=== PATIENT | female | born 1985 | race Caucasian/White ===

== ENCOUNTER 2019-08-10 20:27 | Emergency (ER) | payer SELFPAY ==
[~2019-08-10] VITALS: Ht 157.5 cm; Wt 54.0 kg
[2019-08-10 20:35] VITALS: BP 118/73
--- NOTE | 2019-08-10 20:35 | NUR ---
TO BED # 06 AMBULATORY
[2019-08-10] MEDS ORDERED: ACETAMINOPHEN 325 MG TAB PO ONE (20:45)
--- NOTE | 2019-08-10 20:59 | NUR ---
34 Y/O FEMALE PRESENTS TO ED, C/O OF LEFT FLANK PAIN. PT STATES PAIN STARTED 3 DAYS AGO, 8/10 PAIN, DOES NOT RADIATE. PT DENIES ANY N/V/D. BS ACTIVE X4 QUADRANTS. C/O OF FEVER, 101 TEMP DURING TRIAGE ASSESSMENT. TOOK ADVIL THIS MORNING. PT VSS. ERMD AWARE. WILL CONTINUE TO MONITOR.
--- NOTE | 2019-08-10 21:02 | NUR ---
Dr. Mac examining patient.
[2019-08-10] MEDS ORDERED: KETOROLAC 15 MG/ML VIAL IVP ONE (21:05)
--- NOTE | 2019-08-10 21:16 | NUR ---
PT TAKEN TO CT
--- NOTE | 2019-08-10 21:23 | NUR ---
PT RETURN FROM CT
[2019-08-10] MEDS ORDERED: AZITHROMYCIN 250 MG TAB PO ONE (21:25)
[2019-08-10] MEDS ORDERED: cefTRIAXone 1,000 MG VIAL ONE (21:39)
[2019-08-10 21:43] LABS: BASOPHILS % (AUTO) 0.2 % (0.0-2.0); HEMATOCRIT 40.5 % (36-48); HEMOGLOBIN 13.7 g/dL (12.0-16.0); LYMPHOCYTES # (AUTO) 0.8 K/uL (2.5-16.5); LYMPHOCYTES % (AUTO) 5.1 % (20.5-51.1); MEAN CORPUSCULAR HEMOGLOBIN 31 pg (27-31); MEAN CORPUSCULAR HGB CONC 34 g/dL (33-37); MEAN CORPUSCULAR VOLUME 92.2 fL (80-94); MONOCYTES # (AUTO) 1.1 K/uL (0.8-1.0); MONOCYTES % (AUTO) 6.8 % (1.7-9.3); NEUTROPHILS # (AUTO) 14.1 K/uL (1.8-7.7); NEUTROPHILS % (AUTO) 87.9 % (42.2-75.2); PLATELET COUNT (AUTO) 363 K/uL (140-450); RED BLOOD CELL COUNT(AUTO) 4.39 MIL/uL (4.20-5.40); RED CELL DISTRIBUTION WIDTH 12.2 % (11.6-13.7)
--- NOTE | 2019-08-10 21:45 | NUR ---
PT TAKEN TO XRAY
[2019-08-10 21:57] LABS: ANION GAP 14.5 (8-16); CARBON DIOXIDE 27.8 mmol/L (21-32); CREATININE 0.7 mg/dL (0.6-1.3); POTASSIUM 4.3 mmol/L (3.5-5.1)
[2019-08-10 22:00] LABS: ALBUMIN 3.6 g/dL (3.4-5.0); TOTAL BILIRUBIN 0.9 mg/dL (0.0-1.0)
[2019-08-10 22:15] LABS: APPEARANCE,URINE CLEAR (CLEAR); BILIRUBIN,URINE NEGATIVE (NEGATIVE); BLOOD, URINE NEGATIVE (NEGATIVE); COLOR,URINE YELLOW (YELLOW); LEUKOCYTE ESTERASE ,URINE NEGATIVE (NEGATIVE); NITRITE, URINE NEGATIVE (NEGATIVE); UGLUCOSE NEGATIVE (NEGATIVE)
[2019-08-10 22:27] LABS: RBC,URINE 0-5 /HPF (0-5); WBC,URINE 0-5 /HPF (0-5)
[2019-08-10 22:50] VITALS: BP 118/73
--- NOTE | 2019-08-10 22:50 | NUR ---
PT DISCHARGED WITH PAPERWORK. RX AMOXICILLIN AND TYLENOL. EDUCATED PT REGARDING MEDICATIONS AND S/E. EDUCATED PT REGARDING D/C DIAGNOSIS AND INSTRUCTIONS. PT VERBALIZED UNDERSTANDING OF TEACHING. TOLD PT TO FOLLOW UP WITH PCP AND WHEN TO RETURN TO ED. PT VSS. NO FEVER NOTED. ALL QUESTIONS ANSWERED.
== END 2019-08-10 22:50 | disposition home or self-care (01) ==
LOC: MED 20:27 → EDBD 20:27 → MED 22:50
DX: J18.1 Lobar pneumonia, unspecified organism (principal); Z98.890 Other specified postprocedural states
CPT/HCPCS: 36415; 71046; 74176; 80053; 81001; 81025; 83605; 83690; 85025; 87081; 96365; 96375; 99284; J0696; J1885